=== PATIENT | male | born 1955 | race Caucasian/White ===

== ENCOUNTER 2016-11-22 06:34 | Day surgery (SDC) | payer BC ==
[2016-11-20 09:45] VITALS: BMI 31.5
[~2016-11-22 06:34] MED LIST: ALPRAZolam 0.25 MG TAB PO PRN; ALPRAZolam 0.5 MG TAB PO PRN; ASPIRIN 325 MG TAB PO STA; ATORVASTATIN 80 MG TAB PO STA; NITROGLYCERIN SL TABS 0.4 MG TAB SUBLINGUAL PRN; SODIUM CHLORIDE 0.9% 1,000 ML in EMPTY BAG 1 BAG IV ONE
[2016-11-22 07:13] VITALS: RESP 16; TEMP 98.3
[2016-11-22] MEDS ORDERED: LIDOCAINE 2% INJ 20 MG/ML (20 ML MDV) ONE (07:14)
[2016-11-22] MEDS ORDERED: VERAPAMIL 2.5 MG/ML 2 ML AMP ONE (07:14)
[2016-11-22 07:17] LABS: Basophils % (A) 1 %; CH 30.8; Eosinophils # (A) 0.1 k/uL (0-0.7); Eosinophils % (A) 2 %; HCT 47.9 % (39.0-53.0); HDW 2.51; HGB 16.1 gm/dL (13.0-17.5); Luc # (Auto) 0.14; Luc % (Auto) 3; Lymphocytes # (A) 1.2 k/uL (1.0-4.8); Lymphocytes % (A) 22 %; MCH 29.6 pg (25.0-35.0); MCHC 33.5 g/dL (31.0-37.0); MCV 88.5 fL (80.0-100.0); Mean Platelet Volume 7.7; Monocytes # (A) 0.4 k/uL (0-1.0); Monocytes % (A) 8 %; Neutrophils # (A) 3.4 k/uL (1.3-7.7); Neutrophils % (A) 65 %; RBC 5.42 m/uL (4.30-5.90); RDW 13.6 % (11.5-15.5); WBC 5.3 k/uL (3.8-10.6)
[2016-11-22] MEDS ORDERED: fentaNYL (PF) 50 MCG/ML 2 ML AMP ONE (07:38)
[2016-11-22] MEDS ORDERED: diphenhydrAMINE 50 MG/ML 1 ML VIAL ONE (07:38)
[2016-11-22] MEDS ORDERED: HEPARIN SODIUM 1,000 UN/ML (10ML VL) ONE (07:46)
[2016-11-22] MEDS ORDERED: fentaNYL (PF) 50 MCG/ML 2 ML AMP IV ONE (07:52)
[2016-11-22] MEDS ORDERED: diphenhydrAMINE 50 MG/ML 1 ML VIAL IVP ONE (07:53)
[2016-11-22] MEDS ORDERED: LIDOCAINE 2% INJ 20 MG/ML SQ ONE (07:57)
[2016-11-22] MEDS ORDERED: VERAPAMIL SYRINGE (5 MG/10 ML) INTRAARTER ONE (07:59)
[2016-11-22] MEDS ORDERED: HEPARIN SODIUM 1,000 UN/ML (10ML VL) IV ONE (08:15)
[2016-11-22] MEDS ORDERED: IOHEXOL 350 MG/ML 125ML BOTTLE INJ ONE (08:24)
[2016-11-22 08:29] LABS: Anion Gap 5 mmol/L; Calcium 8.9 mg/dL (8.4-10.2); Carbon Dioxide 26 mmol/L (22-30); Chloride 108 mmol/L (98-107); Glucose 98 mg/dL (74-99); Non-African American GFR(MDRD) >60 (>60 ml/min/1.73 sqM); Sodium 139 mmol/L (137-145)
[2016-11-22 08:30] LABS: Blood Urea Nitrogen 14 mg/dL (9-20); Potassium 4.6 mmol/L (3.5-5.1)
[2016-11-22] MEDS ORDERED: RX INFO: IV CONTRAST WAS GIVEN 1 EACH MISC MISCELLANE PRN (08:36)
[2016-11-22] MEDS ORDERED: ERGOCALCIFEROL 50,000 UNIT CAP PO SCH (08:45)
[2016-11-22] MEDS ORDERED: SODIUM CHLORIDE 0.9% 1,000 ML IV SCH (08:45)
[2016-11-22] MEDS ORDERED: HYDROCHLOROTHIAZIDE 12.5 MG CAP PO SCH (09:00)
[2016-11-22] MEDS ORDERED: NON-FORMULARY DRUG (Aspirin [Adult Low Dose Aspirin Ec] 81 MG) PO SCH (09:00)
[2016-11-22] MEDS ORDERED: amLODIPine 5 MG TAB PO SCH (09:00)
[2016-11-22 13:02] VITALS: BP 129/82; PULSE 74
--- NOTE | 2016-11-23 10:13 | CC ---
CARDIAC CATHETERIZATION REPORT Date of Service: DATE OF SERVICE: 11/22/2016. HISTORY: Mr. Cody is a 61-year-old male with a history of hypertension, family history of premature coronary artery disease, who has been complaining of progressive dyspnea on exertion. He underwent a stress test that showed evidence of stress-induced ischemia involving the anteroseptal, basal and mid inferior wall. In view of that, recommendation made regarding cardiac catheterization. The procedure as well as the risks and complications were discussed with the patient who was in full understanding and agreement. 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 Using Xylocaine anesthesia and Seldinger technique, 6-Zambian sheath was introduced in the right radial artery. Selective right and left coronary angiography performed using 5-Zambian 3-1/2 bend right catheter. Multiple views of the coronary arteries including hemiaxial views were obtained. Following that, 5 Zambian tight pigtail y including obtained from the 5-Zambian tight pigtail catheter was introduced into the left ventricle and a 30 degree COELHO view of the left ventricle was obtained. Following, that the catheter and sheath were removed. Hemostasis was obtained with deployment of a TR band. There was no immediate complication. Patient was returned to his room in stable condition. FINDINGS: 1. Left main. This is a short size vessel, bifurcating into circumflex and left anterior descending artery. Left main coronary artery is without any significant obstructive disease. 2. Left anterior descending artery. This is a large size vessel, reaching toward the apex, with a wrap around the apical segment. The left anterior descending artery has no evidence of high-grade stenosis. 3. Left circumflex. This is a large dominant vessel, bifurcating distally into PDA, posterolateral segment and its branches. It gives rise to a large obtuse marginal branch in the mid segment. The left circumflex as well as its branches have no evidence of obstructive coronary artery disease. 4. Right coronary artery. This is a small nondominant vessel that has no evidence of high-grade stenosis. LEFT VENTRICULOGRAM: Left ventriculogram was performed in 30 degree COELHO view and revealed normal left ventricular size and systolic function. Ejection fraction is 60%. HEMODYNAMICS: There was no gradient across the aortic valve. Left ventricular end-diastolic pressure was 14 to 16 mmHg. CONCLUSION: 1. Normal coronary arteries. 2. Dominant left coronary system. 3. Normal left ventricular size and systolic function. RECOMMENDATIONS: In view of the findings of the anatomy, I have recommended continued medical therapy with aggressive coronary risk factor modifications which have been initiated. I see no evidence to suggest any significant cardiac abnormalities. Those findings and recommendations were discussed with the patient and his family who were in full understanding and agreement. DURATION OF PROCEDURE: 23 minutes. ERIK / SATHYA: [id number] /
--- NOTE | 2016-11-23 10:21 | LTR ---
Date: November 22, 2016 Dr. Minesh May RE: Manuel Limdominga Dear Dr. May: I had the pleasure of performing cardiac catheterization on Mr. Campbell at [facility] on November 22 and a full copy of the procedure note will be forwarded to you. In brief, he was found to have no evidence of significant obstructive coronary artery disease with a preserved ventricular size and systolic function. Based on those findings, I recommend continued medical therapy with aggressive coronary risk modifications being initiated. Thank you again for allowing me the privilege to participate in this patient's care. Please feel free to call if there are any questions. Sincerely, ISAKL / IJN: [id number] /
== END 2016-11-22 13:38 | disposition home or self-care (01) ==
LOC: CATHCVL 06:34
PROVIDERS: ATTEND Internal Medicine Interventional Cardiology
DX: R06.09 Other forms of dyspnea (principal); I10 Essential (primary) hypertension; R94.39 Abnormal result of other cardiovascular function study; Z82.49 Family history of ischemic heart disease and other diseases of the circulatory system; Z79.899 Other long term (current) drug therapy
CPT/HCPCS: 93458; 80048; 85025; 99152; 99153; C1894; C1769; J2001; J1200; J3010; J1644; Q9967

== ENCOUNTER → 2020-05-23 | Outpatient (CLI) | payer OTHER ==
--- NOTE | 2020-05-23 16:30 | XR ---
EXAMINATION TYPE: XR shoulder complete LT DATE OF EXAM: 05/23/2020 CLINICAL HISTORY: Pain after slip and fall injury. TECHNIQUE: Three views of the left shoulder are obtained. COMPARISON: None. FINDINGS: There is no acute fracture/dislocation evident in the left shoulder. Mild to moderate narr owing and moderate spurring at acromioclavicular joint. Mild to moderate narrowing with mild inferior spurring at glenohumeral joint. The visualized ribs are intact. Suspect low lung volumes with possible elevated left hemidiaphragm. Correlate clinically and with old outside chest x-ray. IMPRESSION: There is no acute fracture or dislocation in the left shoulder.
--- NOTE | 2020-05-23 16:31 | XR ---
EXAMINATION TYPE: XR elbow complete LT DATE OF EXAM: 05/23/2020 CLINICAL HISTORY: Pain after fall injury recently. TECHNIQUE: Frontal, lateral and oblique images of the left elbow are obtained. COMPARISON: None FINDINGS: There is no acute fracture/dislocation evident in the left elbow. No abnormal fat pad sig ns are seen. Some vertical calcification near the medial upper condyle, suspect calcific tendinitis. Mild ulnohumeral spurring. The overlying soft tissue appears unremarkable. IMPRESSION: There is no acute fracture or dislocation in the left elbow.
== END ==
LOC: RADXRMAIN 16:10
PROVIDERS: ATTEND Emergency Medicine
DX: S49.92XA Unspecified injury of left shoulder and upper arm, initial encounter (principal); S59.902A Unspecified injury of left elbow, initial encounter; M25.522 Pain in left elbow; W19.XXXA Unspecified fall, initial encounter

== ENCOUNTER → 2020-06-01 | Outpatient (CLI) | payer OTHER ==
--- NOTE | 2020-06-01 11:39 | MR ---
EXAMINATION TYPE: MR shoulder LT wo con DATE OF EXAM: 06/01/2020 COMPARISON: Plain film 05/23/2020 HISTORY: L shoulder contusion, Pt fell and landed on Lt shoulder, pain, decreased range of motion TECHNIQUE: Multiplanar, multisequence imaging of the left shoulder is performed without contrast. FINDINGS: Rotator Cuff: There is a partial full-thickness tear of the anterior aspect of the rotator cuff, armani nal image #13, sagittal image #5 and axial image #19 Acromioclavicular Joint: There is arthropathy present at the acromioclavicular joint causing mass eff ect on the musculotendinous junction of supraspinatus, there is a distal acromial spur present, fluid signal is present in the subacromial subdeltoid bursa Glenohumeral Joint: Intact Labrum: The labrum appears grossly intact given limitation of non-arthrogram study. Biceps Tendon: The long head of biceps is in normal location within bicipital groove, some fluid sign al is present along the long head of biceps tendon suggesting tenosynovitis. Bone marrow signal: Some pseudocysts are present within the humeral head Other: There is some fluid signal present along the subscapularis musculotendinous junction, subacrom ial subdeltoid bursa, small joint effusion. There is a focus at the posterior aspect of the shoulder, axial image 15 within the subcutaneous fat measuring 3.3 cm x 5.2 x 2.4 cm which is T1 isointense, T 2 bright and may represent a subcutaneous sebaceous cyst IMPRESSION: Partial full-thickness rotator cuff tear, correlate for impingement, there is a distal acromial spur. Large sebaceous cyst suspected, correlate. Additional findings above.
== END | disposition home or self-care (01) ==
LOC: RADMRIMAIN 08:53
PROVIDERS: ATTEND Emergency Medicine
DX: M75.122 Complete rotator cuff tear or rupture of left shoulder, not specified as traumatic (principal); M12.812 Other specific arthropathies, not elsewhere classified, left shoulder; M25.812 Other specified joint disorders, left shoulder

== ENCOUNTER → 2021-08-08 | Outpatient (CLI) | payer BC ==
--- NOTE | 2021-08-08 16:23 | XR ---
EXAMINATION TYPE: XR shoulder complete 3 views LT DATE OF EXAM: 08/08/2021 Comparison: 05/23/2020 Clinical History: 65-year-old male M25.512, persistent pain after fall 2 years ago. Findings: Healed fracture deformity mid left clavicular shaft. Mild marginal spurring at the AC joint. Subacrom ial space is preserved. No acute fracture, subluxation, or dislocation. Impression: Healed fracture deformity mid left clavicular shaft. Mild AC joint OA. No acute osseous abnormality s een.
== END | disposition home or self-care (01) ==
LOC: RADXRMAIN 07:28
PROVIDERS: ATTEND Internal Medicine
DX: M19.012 Primary osteoarthritis, left shoulder (principal)

== ENCOUNTER 2022-11-02 10:14 | Emergency (ER) | payer BC, MEDICARE ==
--- NOTE | 2022-11-02 10:58 | ED ---
General Adult HPI - General Chief complaint: Extremity Problem,Nontraumatic Stated complaint: swollen leg Time Seen by Provider: 11/02/22 10:50 Source: patient, RN notes reviewed Mode of arrival: ambulatory Limitations: no limitations - History of Present Illness Initial comments: 67-year-old male with past medical history significant for hype rtension presents to the emergency department with a chief complaint of left ache pain. Patient reports redness, swelling, tenderness to the left upper thigh. He reports that it started 3 weeks ago close to his knee however it has since migrated and gotten worse. He denies any fever or chills. It is tender and mildly itchy. He has not taken anything for her symptoms. He denies any injury or trauma. 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 He denies history of blood clot. He denies any current anticoagulant use. Denies fever, cough, dyspnea, palpitations, shortness of breath. - Related Data Home Medications Medication Instructions Recorded Confirmed Aspirin [Adult Low Dose Aspirin EC] 81 mg PO DAILY 11/20/16 11/22/16 Ergocalciferol [Vitamin D2] 50,000 unit PO QMONTH 11/20/16 11/22/16 amLODIPine [Norvasc] 5 mg PO DAILY 11/20/16 11/22/16 hydroCHLOROthiazide 12.5 mg PO DAILY 11/20/16 11/22/16 Allergies Allergy/AdvReac Type Severity Reaction Status Date / Time No Known Allergies Allergy Verified 11/02/22 10:21 Review of Systems ROS Statement: Those systems with pertinent positive or pertinent negative responses have been documented in the HPI. ROS Other: All systems not noted in ROS Statement are negative. Past Medical History Past Medical History: Hypertension History of Any Multi-Drug Resistant Organisms: None Reported Past Surgical History: No Surgical Hx Reported Additional Past Surgical History / Comment(s): colonoscopy Past Anesthesia/Blood Transfusion Reactions: No Reported Reaction Past Psychological History: No Psychological Hx Reported Smoking Status: Never smoker Past Alcohol Use History: Rare Past Drug Use History: None Reported - Past Family History Mother Family Medical History: Deep Vein Thrombosis (DVT) General Exam - General Exam Comments Initial Comments: General: Alert, in no acute distress Head: atraumatic normocephalic. Eyes PERRL, EOMI intact, mucous membranes moist Respiratory: Lungs clear to auscultation bilaterally Cardiovascular: Heart rate regular rate and rhythm Abdominal: Soft without guarding or rebound Extremities: Normal inspection with full range of motion and normal capillary refill, longitudinal erythematous area to the left upper thigh that is tender and warm. No drainage. Nonfluctuant. 2+ DT/PT pulses. Distal neurovascularly intact. Neuroogic: alert and oriented 3, CN II-XII intact, able to ambulate with steady gait Skin: warm dry and intact with normal color Limitations: no limitations Course Vital Signs 11/02/22 11/02/22 10:19 13:10 Temperature 98.5 F 97.8 F Pulse Rate 89 67 Respiratory 20 17 Rate Blood Pressure 140/83 142/80 O2 Sat by Pulse 99 98 Oximetry - Reevaluation(s) Reevaluation #1: 11/02/22 13:00 Case discussed with verbally, radiologist read ultrasound. He reports that the thrombus is approximately 3.5 cm. It is one centimeter deep. Medical Decision Making - Medical Decision Making Was pt. sent in by a medical professional or institution (, PA, [employer]SEM[employer], urgent care, hospital, or jail...) When possible be specific Did you speak to anyone other than the patient for history (EMS, parent, family, police, friend...)? What history was obtained from this source @ - Did you review nursing and triage notes (agree or disagree)? Why? @ -[I reviewed and agree with nursing and triage notes] Were old charts reviewed (outside hosp., previous admission, EMS record, old EKG, old radiological studies, urgent care reports/EKG's, jail records)? Report findings @ -[No old charts were reviewed] Differential Diagnosis (chest pain, altered mental status, abdominal pain women, abdominal pain men, vaginal bleeding, weakness, fever, dyspnea, syncope, headache, dizziness, GI bleed, back pain, seizure, CVA, palpatations, mental health, musculoskeletal)? @ -[not applicable] EKG interpreted by me (3pts min.). @ -[As above] X-rays interpreted by me (1pt min.). @ -[None done] CT interpreted by me (1pt min.). @ -[None done] U/S interpreted by me (1pt. min.). @ -Ultrasound negative for any evidence of DVT. There is a 3 white 5 cm superficial superficial thrombus What testing was considered but not performed or refused? (CT, X-rays, U/S, labs)? Why? @ -[None] What meds were considered but not given or refused? Why? @ -[None] Did you discuss the management of the patient with other professionals (professionals i.e. DrEnedina, PA, [employer], lab, RT, psych nurse, director of social services, beater room helper, teacher, public records officer, family preservation caseworker)? Give summary @ -[No] Was smoking cessation discussed for >3mins.? @ -[No] Was critical care preformed (if so, how long)? @ -[No] Were there social determinants of health that impacted care today? How? (Homelessness, low income, unemployed, alcoholism, drug addiction, transportation, low edu. Level, literacy, decrease access to med. care, [place] [facility], rehab)? @ -[No] Was there de-escalation of care discussed even if they declined (Discuss DNR or withdrawal of care, Hospice)? DNR status @ -[No] What co-morbidities impacted this encounter? (DM, HTN, Smoking, COPD, CAD, Cancer, CVA, ARF, Chemo, Hep., AIDS, mental health diagnosis, sleep apnea, morbid obesity)? @ -[None] Was patient admitted / discharged? Hospital course, mention meds given and route, prescriptions, significant lab abnormalities, going to OR and other pertinent info. @ -Discharged. This is a pleasant 67-year-old male who presents the emergency department with thigh pain. Patient had a thorough history and physical exam performed on the emergency department. Physical exam is essentially unremarkable. Left body with longitudinal area of redness, tenderness. No fluctuance noted. Patient had ultrasound of left lower extremity which is negative for DVT. Therefore anticoagulation with not provided.. Patient had lab work and imaging performed which were essentially unremarkable. I discussed results in detail with the patient verbalized understanding all questions were addressed. She is agreeable with the plan for discharge. All questions were addressed with recommended close follow-up with PCP in 1-2 days.. Patient discharged in stable condition with strict return precautions including increased shortness of breath, fever, chest pain. Case discussed with YUNIEL Stacy who agrees with plan of care Undiagnosed new problem with uncertain prognosis? @ -[No] Drug Therapy requiring intensive monitoring for toxicity (Heparin, Nitro, Insulin, Cardizem)? @ -[No] Were any procedures done? @ -[No] Diagnosis/symptom? @ -Superficial thrombophlebitis Acute, or Chronic, or Acute on Chronic? @ -Acute Uncomplicated (without systemic symptoms) or Complicated (systemic symptoms)? @ -Uncomplicated Side effects of treatment? @ -[No] Exacerbation, Progression, or Severe Exacerbation? @ -[No] Poses a threat to life or bodily function? How? (Chest pain, [place], MA, pneumonia, PE, COPD, DKA, ARF, appy, cholecystitis, CVA, Diverticulitis, Homicidal, Suicidal, threat to staff... and all critical care pts) @ -Low likelihood Disposition Clinical Impression: Superficial thrombophlebitis of left leg Disposition: HOME SELF-CARE Condition: Stable Instructions (If sedation given, give patient instructions): Superficial Thrombophlebitis (ED) Additional Instructions: Please return to the nearest emergency department if symptoms of shortness of breath, fever develops Please take Tylenol Motrin for pain Is patient prescribed a controlled substance at d/c from ED?: No Referrals: Quinten Govea MD [Primary Care Provider] - 1-2 days Time of Disposition: 13:01
--- NOTE | 2022-11-02 11:56 | US ---
EXAMINATION TYPE: US venous doppler duplex LE LT DATE OF EXAM: 11/02/2022 11:44 AM COMPARISON: NONE CLINICAL INDICATION: Male, 67 years old with history of R/out DVT; Left medial thigh and calf pain x couple weeks SIDE PERFORMED: Left TECHNIQUE: The lower extremity deep venous system is examined utilizing real time linear array sonog brian with graded compression, doppler sonography and color-flow sonography. VESSELS IMAGED: Common Femoral Vein Deep Femoral Vein Greater Saphenous Vein * Femoral Vein Popliteal Vein Small Saphenous Vein * Proximal Calf Veins (* superficial vessels) Left Leg: Appears negative for DVT Thrombus seen within superficial vessel medial thigh and calf at patient's area of pain IMPRESSION: 1. No evidence of DVT. 2. Superficial vein thrombosis.
[2022-11-02 13:12] VITALS: BP 142/80; PULSE 67; RESP 17; TEMP 97.8
== END 2022-11-02 13:10 | disposition home or self-care (01) ==
LOC: EC 10:14
DX: I80.02 Phlebitis and thrombophlebitis of superficial vessels of left lower extremity (principal); I10 Essential (primary) hypertension; Z79.82 Long term (current) use of aspirin; Z79.899 Other long term (current) drug therapy
CPT/HCPCS: 99283

== ENCOUNTER → 2022-12-31 | Outpatient (CLI) | payer BC, MEDICARE ==
[2022-12-31 11:10] LABS: ALT 14 U/L (10-49); AST 16 U/L (14-35); BUN/Creat Ratio 16.44 Ratio (12.00-20.00); Blood Urea Nitrogen 14.8 mg/dL (9.0-27.0); Calcium 9.9 mg/dL (8.7-10.3); Carbon Dioxide 27.9 mmol/L (21.6-31.8); Chloride 100 mmol/L (96-109); Chol/HDL Ratio 3.54 Ratio; Glucose 109 mg/dL (70-110); LDL Cholesterol,Calculated 104.9 mg/dL (0.0-131.0); Potassium 5.5 mmol/L (3.5-5.5); Sodium 137 mmol/L (135-145)
[2022-12-31 11:24] LABS: HCT 49.5 % (39.6-50.0); MCH 29.7 pg (27.0-32.0); MCHC 32.3 d/dL (32.0-37.0); NRBC Per 100 WBC 0 X 10*3/uL (0.00-0.01); Platelet Count 214 X 10*3/uL (140-440); RBC 5.38 X 10*6/uL (4.40-5.60)
== END | disposition home or self-care (01) ==
LOC: LABWHC1 06:50
PROVIDERS: ATTEND Student in an Organized Health Care Education/Training Program
DX: Z00.00 Encounter for general adult medical examination without abnormal findings (principal); E78.5 Hyperlipidemia, unspecified; E11.9 Type 2 diabetes mellitus without complications
CPT/HCPCS: 36415; 80048; 80061; 83036; 84450; 84460; 85027

== ENCOUNTER → 2023-10-04 | Outpatient (CLI) | payer BC, MEDICARE ==
--- NOTE | 2023-10-04 13:00 | XR ---
EXAMINATION TYPE: XR knee limited RT DATE OF EXAM: 10/04/2023 COMPARISON: None HISTORY: Fall from ladder TECHNIQUE: 2 view right knee FINDINGS: No acute fracture or dislocation is evident. Joint spaces are preserved. No joint effusion is evident. Follow up exams can be performed 7-10 days from acute trauma for continued pain. IMPRESSION: 1. No acute osseous abnormalities right knee
== END | disposition home or self-care (01) ==
LOC: RADXRMAIN 12:23
PROVIDERS: ATTEND Internal Medicine
DX: M25.561 Pain in right knee (principal)

== ENCOUNTER → 2023-11-08 | Outpatient (CLI) | payer MEDICARE, BC ==
--- NOTE | 2023-12-02 15:25 | MR ---
Patient: Manuel CampbellSohail Ordering Physician: Unknown, Unknown ID: [id number] Phone, Pager: Phone : N/A Pager: N/A : [phone] Age/Gender: 68Y, M Primary Location: N/A Procedure: MRI RT KNEE WO [facility] Date: 11/08/2023 6:02:43 AM Order #: N/[id number] EXAMINATION TYPE: MR knee RT wo con DATE OF EXAM: 11/08/2023 COMPARISON: Limited right knee x-ray October 04, 2023 HISTORY: Acute right knee pain and swelling since fall injury August 23 TECHNIQUE: Multiplanar, multisequence images of the knee is performed without IV contrast. FINDINGS: MEDIAL MENISCUS: There is triangular shaped increased signal posterior horn. There is adjacent thin-w alled cyst measuring 2.4 cm sagittal image 7. There is more prominent irregular vertical abnormal sig nal coronal image 25 posterior horn LATERAL MENISCUS: Meniscus is intact. CRUCIATE LIGAMENTS: The anterior and posterior cruciate ligaments are intact and unremarkable. COLLATERAL LIGAMENTS: The medial collateral ligament and lateral collateral ligament complex are inta ct. Fluid signal surrounds the medial collateral ligament. EXTENSOR MECHANISM: Visualized quadriceps and patellar tendons are intact. EFFUSION: Moderate to large size suprapatellar joint effusion. POPLITEAL CYST: No popliteal/diaz cyst. TRICOMPARTMENT SPACES: Moderate narrowing patellofemoral compartment. Mild to moderate narrowing medi al and lateral tibiofemoral compartments. No significant spurring. CARTILAGE: Chondromalacia patella with cartilaginous loss along the posterior patellar pole greatest medially. Some cartilaginous loss medial tibiofemoral compartment. BONE MARROW SIGNAL: No focal abnormal marrow signal is appreciated. OTHER: No additional significant abnormality is appreciated. IMPRESSION: 1. Complex full-thickness tear posterior horn medial meniscus. 2. Moderate to large sized patellar joint effusion. 3. Mild MCL sprain injury. 4. Tricompartment degenerative changes most prominent patellofemoral compartment as detailed above.
== END | disposition home or self-care (01) ==
LOC: RADMRIMAIN 06:44
PROVIDERS: ATTEND Internal Medicine
DX: S83.241A Other tear of medial meniscus, current injury, right knee, initial encounter (principal); S83.411A Sprain of medial collateral ligament of right knee, initial encounter; M17.11 Unilateral primary osteoarthritis, right knee; M25.461 Effusion, right knee